=== PATIENT | female | born 1960 | race Caucasian/White ===

== ENCOUNTER 2023-12-05 11:18 | Outpatient (CLI) | payer MEDICAID, SELFPAY ==
--- NOTE | 2023-12-05 11:26 | XRR_ITS ---
PROCEDURE INFORMATION: Exam: XR Right Shoulder Exam date and time: 12/05/2023 11:42 AM Age: 62 years old Clinical indication: Shoulder; Patient HX: Right arm and neck pain for 2 years, HX of thyroid cancer; Additional info: Increased pain right shoulder/arm TECHNIQUE: Imaging protocol: Radiologic exam of the right shoulder. Views: 2 or more views. COMPARISON: CR XR cervical spine 3V* [id number] 12/05/2023 11:42 AM FINDINGS: Bones/joints: Normal. Soft tissues: Normal. XR/XR shoulder RT min 2V* [id number] IMPRESSION: No acute findings. Note is made of a moderate right-sided pleural effusion with some scattered right basilar parenchymal opacities. Chronic granulomatous changes.
--- NOTE | 2023-12-05 11:26 | XRR_ITS ---
PROCEDURE INFORMATION: Exam: XR Cervical Spine Exam date and time: 12/05/2023 11:42 AM Age: 62 years old Clinical indication: Patient HX: --right arm and neck pain for 2 years, HX of thyroid cancer; Additional info: Increased pain in neck and right arm TECHNIQUE: Imaging protocol: Radiologic exam of the cervical spine. Views: 2 or 3 views. COMPARISON: CR XR shoulder RT min 2V* [id number] 12/05/2023 11:42 AM FINDINGS: Bones/joints: No fracture or other acute abnormality. The bones are demineralized. There is a cervical kyphosis. Alignment is otherwise normal. Fnuz-xo-lyxnbtmu degenerative disc disease is seen at C4, C5, and C6 manifested by mild to moderate disc space narrowing and small marginal osteophytes. Posterior elements are unremarkable as visualized. Soft tissues: Unremarkable. XR/XR cervical spine 3V* [id number] IMPRESSION: Nonacute findings.
== END 2023-12-05 11:19 | disposition home or self-care (01) ==
PROVIDERS: PCP Family Medicine; Visit Provider Family Medicine
DX: M54.12 Radiculopathy, cervical region (principal); M19.011 Primary osteoarthritis, right shoulder; J90 Pleural effusion, not elsewhere classified
CPT/HCPCS: 72040; 73030

== ENCOUNTER → 2023-12-12 14:17 | Outpatient (BNVA) | payer MEDICAID, SELFPAY | PROVIDERS: PCP Family Medicine; Referring Provider Family Medicine; Visit Provider Orthopaedic Surgery | DX: M47.12 Other spondylosis with myelopathy, cervical region (principal); M54.12 Radiculopathy, cervical region; M54.2 Cervicalgia | CPT/HCPCS: 72050 ==

== ENCOUNTER 2023-12-26 18:36 | Emergency (ER) | payer MEDICAID, SELFPAY ==
[2023-12-26 18:46] VITALS: BP 133/93; PULSE 76; RESP 16; TEMP 36.7; O2SAT 96; BMI 36.6
--- NOTE | 2023-12-26 18:55 | ED_ITS ---
HPI - Nausea/Vomiting/Diarrhea 2 General: Chief complaint: Nausea/Vomiting/Diarrhea Stated complaint: vomitting Time Seen by Provider: 12/26/23 18:50 History of Present Illness: 63-year-old female with a history of ARCHITECTURAL TECHNOLOGIST D hypothyroidism who presents to the emergency room with nausea vomiting for about 3 days now. She states been sick for about a week. She started with some congestion. She started vomiting which is worse today. She says cannot keep anything down really she does keep some fluids down but it makes her feel queasy. She says she has been taking Zofran pills which have not been helping no focal abdominal pain. No dysuria. No altered mental status. Review of Systems 2 Narrative: Constitutional symptoms: Negative except as documented in HPI. Skin symptoms: Negative except as documented in HPI. Eye symptoms: Negative except as documented in HPI. ENMT symptoms: Negative except as documented in HPI. Respiratory symptoms: Negative except as documented in HPI. Cardiovascular symptoms: Negative except as documented in HPI. Gastrointestinal symptoms: Negative except as documented in HPI. Genitourinary symptoms: Negative except as documented in HPI. Musculoskeletal symptoms: Negative except as documented in HPI. Neurologic symptoms: Negative except as documented in HPI. Psychiatric symptoms: Negative except as documented in HPI. Endocrine symptoms: Negative except as documented in HPI. PFSH ED 2 PFSH: Medical History (Updated 12/26/23 @ 20:44 by Kala Gregory MD) Hypothyroid COPD (chronic obstructive pulmonary disease) Venous stenosis of left upper extremity Thyroid cancer Physical Exam 2 Narrative: EXAM NARRATIVE: General: Alert, no acute distress. Skin: Warm, dry. Head: Normocephalic, atraumatic. Neck: Supple, trachea midline. Eye: Extraocular movements are intact. Ears, nose, mouth and throat: Tacky oral mucosa Cardiovascular: Regular, Normal peripheral perfusion. Respiratory: Lungs are clear to auscultation, respirations are non-labored, breath sounds are equal, Symmetrical chest wall expansion. Gastrointestinal: Soft, Nontender, Non distended, Normal bowel sounds. Musculoskeletal: Normal ROM, no deformity. Neurological: Alert and oriented, No focal neurological deficit observed. Psychiatric: Cooperative, appropriate mood & affect. Course 2 Vital Signs: Vital signs: Vital Signs Temperature 98.0 F 12/26/23 18:46 Pulse Rate 76 12/26/23 18:46 Respiratory Rate 16 12/26/23 18:46 Blood Pressure 133/93 12/26/23 18:46 Pulse Oximetry 96 12/26/23 18:46 Oxygen Delivery Me thod Room Air 12/26/23 18:46 MDM - Nausea/Vomiting/Diarrhea Medical Decision Making Medical decision making: Differential diagnosis including but not limited to and based on the above HPI, review of systems and physical exam: In this patient with nausea and vomiting and diarrhea would have concern for viral gastroenteritis and dehydration. Also concern for UTI. Basic lab work was ordered. Orders placed to evaluate differential diagnosis based on the above differential, HPI and physical exam Lab Review: Laboratory results were reviewed and interpreted by myself the emergency room physician. Patient has a white count of 6. Hemoglobin 16. BUN and creatinine are 7 and 0.7. Glucose is 116. Potassium is 3.2. Her urine does show signs of infection so she is being treated. I reviewed the patient's medical record. Reexamination: Patient says she feels somewhat better. A second dose of Zofran is being given. No altered mental status. No focal motor deficits. She has not had any vomiting while she has been here. Assessment and plan: UTI Viral gastroenteritis Dehydration -Normal saline bolus and two 8 mg doses of Zofran. - Discharged home - Discussed plan with patient. Answered any questions. - Evaluation and treatment of this problem were appropriate in the emergency setting. Lab Data 12/26/23 19:15 12/26/23 19:15 Laboratory Results WBC 6.02 10^3/uL (3.29-11.43) 12/26/23 19:15 RBC 5.37 10^6/uL (3.85-5.65) 12/26/23 19:15 Hgb 16.30 g/dL (11.27-16.99) 12/26/23 19:15 Hct 47.7 % (36-47) H 12/26/23 19:15 MCV 88.8 fl (85-98) 12/26/23 19:15 MCH 30.4 pg (27-33) 12/26/23 19:15 MCHC 34.2 g/dL (30-55) 12/26/23 19:15 RDW 12.8 % (12.1-15.1) 12/26/23 19:15 Plt Count 314 10^3/cmm (157-399) 12/26/23 19:15 MPV 10.2 fL (7.4-10.4) 12/26/23 19:15 Neut % (Auto) 74.6 % 12/26/23 19:15 Lymph % (Auto) 19.6 % 12/26/23 19:15 Oliver % (Auto) 4.2 % 12/26/23 19:15 Eos % (Auto) 1.0 % 12/26/23 19:15 Baso % (Auto) 0.3 % 12/26/23 19:15 Neut # (Auto) 4.49 10^3/uL (1.8-7.7) 12/26/23 19:15 Lymph # (Auto) 1.2 10^3/uL (0.8-4.8) 12/26/23 19:15 Oliver # (Auto) 0.3 10^3/uL (0.2-0.9) 12/26/23 19:15 Eos # (Auto) 0.1 10^3/uL (0.0-0.8) 12/26/23 19:15 Baso # (Auto) 0.0 10^3/uL (0.0-0.1) 12/26/23 19:15 Nucleated RBC % (auto) 0 % 12/26/23 19:15 Nucleated RBCs # 0.0 /100WBC 12/26/23 19:15 Sodium 137 mmol/L (136-145) 12/26/23 19:15 Potassium 3.2 mmol/L (3.5-5.1) L 12/26/23 19:15 Chloride 94 mmol/L (98-107) L 12/26/23 19:15 Carbon Dioxide 30 mmol/L (22-29) H 12/26/23 19:15 Anion Gap 16.2 (5-19) 12/26/23 19:15 BUN 7 mg/dL (8-23) L 12/26/23 19:15 Creatinine 0.7 mg/dL (0.5-0.9) 12/26/23 19:15 GFR Calculation 84.5 mL/min (90-130) L 12/26/23 19:15 Glucose 116 mg/dL (65-115) H 12/26/23 19:15 Calculated Osmolality 283 mOsm/kg (285-295) L 12/26/23 19:15 Lactic Acid 1.6 mmol/L (0.5-2.2) 12/26/23 19:15 Calcium 9.6 mg/dL (8.5-10.5) 12/26/23 19:15 Total Bilirubin 0.3 mg/dL (0.15-1.2) 12/26/23 19:15 AST 25 U/L (0-32) 12/26/23 19:15 ALT 11 U/L (0-33) 12/26/23 19:15 Alkaline Phosphatase 200 U/L (35-105) H 12/26/23 19:15 C-Reactive Protein 24.9 mg/L (0.0-4.9) H 12/26/23 19:15 Total Protein 8.4 g/dL (6.6-8.7) 12/26/23 19:15 Albumin 4.0 g/dL (3.5-5.2) 12/26/23 19:15 Globulin 4.4 g/dL (1.3-4.6) 12/26/23 19:15 Lipase 12 U/L (13-60) L 12/26/23 19:15 Urine Color Yellow (Yellow) 12/26/23 19:46 Urine Appearance Slightly cloudy (CLEAR) 12/26/23 19:46 Urine pH 7 (5-7) 12/26/23 19:46 Ur Specific Pandora 1.015 (1.005-1.030) 12/26/23 19:46 Urine Protein Neg (Negative) 12/26/23 19:46 Urine Glucose (UA) Norm (Normal) 12/26/23 19:46 Urine Ketones Negative (Negative) 12/26/23 19:46 Urine Blood Neg (Negative) 12/26/23 19:46 Urine Nitrate Negative (Negative) 12/26/23 19:46 Urine Bilirubin Neg (Negative) 12/26/23 19:46 Urine Urobilinogen Norm mg/dL (Negative) 12/26/23 19:46 Ur Leukocyte Esterase Negative (Negative) 12/26/23 19:46 Urine RBC Rare /hpf (0-2) 12/26/23 19:46 Urine WBC 5-10 /hpf (0-5) H 12/26/23 19:46 Ur Squamous Epith Cells 5-10 /hpf (0-5) H 12/26/23 19:46 Ur Transition Epith Cell 0-4 /hpf 12/26/23 19:46 Amorphous Sediment Not Reportable 12/26/23 19:46 Urine Bacteria 2+ /hpf (NONE) H 12/26/23 19:46 Urine Mucus None /hpf 12/26/23 19:46 Urine Opiates Screen Positive ng/mL (Negative) H 12/26/23 19:46 Ur Barbiturates Screen Negative ng/mL (Negative) 12/26/23 19:46 Ur Phencyclidine Scrn Negative ng/mL (Negative) 12/26/23 19:46 Ur Amphetamines Screen Negative ng/mL (Negative) 12/26/23 19:46 U Benzodiazepines Scrn Negative ng/mL (Negative) 12/26/23 19:46 Urine Cocaine Screen Negative ng/mL (Negative) 12/26/23 19:46 U Marijuana (THC) Screen Negative ng/mL (Negative) 12/26/23 19:46 No radiology studies performed this visit Discharge Plan Discharge Patient Disposition: Home Clinical Impression: Urinary tract infection, Dehydration, Viral gastroenteritis Condition: Stable Prescriptions: New ondansetron 8 mg tablet,disintegrating 8 mg PO .q6 PRN (Reason: nausea and vomiting) Qty: 14 0RF cefdinir 300 mg capsule 300 mg PO BID 7 Days Qty: 14 0RF No Action tizanidine 2 mg capsule 2 mg PO Q8H PRN atorvastatin 10 mg tablet 10 mg PO DAILY montelukast 10 mg tablet 10 mg PO DAILY clopidogrel 75 mg tablet 75 mg PO DAILY prednisone 20 mg tablet 20 mg PO DAILY Qty: 20 0RF Rx Instructions: 3 tabs a day for 3 days then 2 tabs a day for 3 days then 1 tab a day for 5 days ketorolac 30 mg/mL solution 60 mg IM ONCE Qty: 2 0RF ondansetron HCl 4 mg tablet 4 mg PO Q8H PRN (Reason: nausea and vomiting) Qty: 30 0RF levothyroxine 125 mcg tablet 125 mcg PO DAILY Qty: 90 0RF nebivolol 5 mg tablet 5 mg PO DAILY Qty: 90 0RF Premarin 0.9 mg tablet 0.9 mg PO DAILY Qty: 90 0RF Rx Instructions: cyclically topiramate 100 mg tablet 100 mg PO DAILY Qty: 90 0RF diclofenac sodium 75 mg tablet,delayed release (DR/EC) 75 mg PO BID PRN (Reason: pain) Qty: 20 0RF hydrocodone-acetaminophen 10-325 mg tablet 1 tab PO Q12H PRN (Reason: pain) 30 Days Qty: 60 0RF Discharge Orders: Discharge ED (Routine); Ordered 12/26/23 Ordered By: Kala Gregory Referrals: Agueda Lawson MD [Primary Care Provider] - 4-7 days Discharge Diet: Advance as tolerated Discharge Activity: Increase activity as tolerated Patient Instructions: [place] Diet - Adult, Urinary Tract Infection in Women (ED), Gastroenteritis (ED) Activity Restrictions/Additional Instructions: Thank you for choosing [facility] for your healthcare needs today. Please realize this is an emergency room and that we are providing you with a medical screening exam and this may not be complete and all inclusive of all the testing and or work up that you may need to determine your ailment or severity of your illness. You have been screened and evaluated and felt safe for discharge. Health conditions do change or evolve sometimes and as such it is important that you follow up with your Primary Doctor to be re checked, 3-5 days is a general good time frame for follow up. You are always welcome to return to the ED for re assessment if your symptoms are worsening or you have new concerns Coding Level of Care Code ED [employer] Lens Technician for Shaylee Benítez
[2023-12-26] MEDS: sodium chloride 0.9% 1,000 ML 999 ML IV (19:20)
[2023-12-26] MEDS: ondansetron 2 mg/ML SDV 2 mL 8 MG IVP ×2 (19:20→20:51)
[2023-12-26 19:35] LABS: Basophils % 0.3 %; Eosinophils # 0.1 10^3/uL (0.0-0.8); Hematocrit 47.7 % (36-47); Lymphocytes # 1.2 10^3/uL (0.8-4.8); Lymphocytes % 19.6 %; Mean Corpuscular HGB Conc 34.2 g/dL (30-55); Mean Corpuscular Hemoglobin 30.4 pg (27-33); Mean Corpuscular Volume 88.8 fl (85-98); Mean Platelet Volume 10.2 fL (7.4-10.4); Monocytes # 0.3 10^3/uL (0.2-0.9); Monocytes % 4.2 %; Neutrophils # 4.49 10^3/uL (1.8-7.7); Neutrophils % 74.6 %; Nucleated Red Blood Cells % 0 %; Platelet Count 314 10^3/cmm (157-399); Red Blood Count 5.37 10^6/uL (3.85-5.65); Red Cell Distribution Width 12.8 % (12.1-15.1); White Blood Count 6.02 10^3/uL (3.29-11.43)
[2023-12-26 19:54] LABS: Alanine Aminotransferase 11 U/L (0-33); Alkaline Phosphatase 200 U/L (35-105); Anion Gap 16.2 (5-19); Aspartate Amino Transferase 25 U/L (0-32); Blood Urea Nitrogen 7 mg/dL (8-23); C Reactive Protein 24.9 mg/L (0.0-4.9); Calcium 9.6 mg/dL (8.5-10.5); Carbon Dioxide 30 mmol/L (22-29); Chloride 94 mmol/L (98-107); Creatinine Clr Calc Pharmacy 86.1592; Globulin 4.4 g/dL (1.3-4.6); Glomerular Filtration Rate 84.5 mL/min (90-130); Glucose 116 mg/dL (65-115); Lactic Sepsis W/Reflex 1.6 mmol/L (0.5-2.2); Lipase 12 U/L (13-60); Osmolality Calculated 283 mOsm/kg (285-295); Potassium 3.2 mmol/L (3.5-5.1); Sodium 137 mmol/L (136-145); Total Bilirubin 0.3 mg/dL (0.15-1.2); Total Protein 8.4 g/dL (6.6-8.7)
[2023-12-26 20:15] LABS: Urine Appearance Slightly Cloudy (CLEAR); Urine Color Yellow (Yellow); pH Urine 7 (5-7)
[2023-12-26 20:16] LABS: Bilirubin Urine Neg (Negative); Blood Urine Neg (Negative); Glucose Urine UA Norm (Normal); Ketones Urine Negative (Negative); Leukocyte Esterase Urine Negative (Negative); Nitrate Urine Negative (Negative); Protein Urine Neg (Negative); Specific Gravity, Urine 1.015 (1.005-1.030); Urobilinogen Urine Norm (Negative)
[2023-12-26 20:18] LABS: Bacteria Urine 2+ /hpf; RBC Urine RARE /hpf (0-2); Transitional Epi Cells Urine 0-4 /hpf
[2023-12-26 20:19] LABS: Add Urine Culture? No; Amphetamines Screen Urine Negative (Negative); Barbiturates Screen Urine Negative (Negative); Benzodiazepines Screen Urine Negative (Negative); Cocaine Screen Urine Negative (Negative); Opiate Screen Urine Positive (Negative); PCP Screen Urine Negative (Negative); THC Screen Urine Negative (Negative)
[2023-12-26] MEDS: cefTRIAXone 1,000 MG in sodium chloride 0.9% (plus) 50 ML 100 MG IV (20:51)
[2023-12-26] MEDS: prochlorperazine 10 mg/2 mL Inj IVP (21:19)
[2023-12-26] MEDS: diphenhydrAMINE 50 mg/mL SDV 1mL 25 MG IVP (21:22)
[2023-12-26 21:25] VITALS: PULSE 75; RESP 16; O2SAT 98
== END 2023-12-26 21:36 | disposition home or self-care (01) ==
PROVIDERS: Emergency Provider Emergency Medicine; PCP Family Medicine
DX: N39.0 Urinary tract infection, site not specified (principal); A08.4 Viral intestinal infection, unspecified; E86.0 Dehydration; Z79.02 Long term (current) use of antithrombotics/antiplatelets; J44.9 Chronic obstructive pulmonary disease, unspecified; Z85.850 Personal history of malignant neoplasm of thyroid
CPT/HCPCS: 36415; 80053; 80306; 81001; 83605; 83690; 85025; 86140; 96365; 96375; 96376; 99284; J0696; J0780; J1200; J2405; J7030

== ENCOUNTER → 2024-01-16 14:00 | Outpatient (CLI) | payer MEDICAID, SELFPAY ==
--- NOTE | 2024-01-16 14:30 | MR_ITS ---
WS: [id number] MR CERVICAL SPINE WO/W COMPARISON: None. HISTORY: Neck Pain TECHNIQUE: Sagittal T1, T2 and T2 inversion recovery; axial T2, T2 gradient and fiesta. Post gadolini um imaging with fat saturation technique. FINDINGS: Osteoporosis. Reversal of the normal cervical lordosis. Mild cervical curve. Cord signal is normal. Slight anterolisthesis C3 on C4. Disc osteophyte complexes worse at C4-C5 C5-C6 and C6-C7. N o abnormal gadolinium enhancement. C2-3: Mild facet arthropathy. Spinal canal and foramen are patent. C3-4: Osteophytic ridging. Mild LEFT and no significant RIGHT foraminal narrowing. Spinal canal is pa tent. Mild facet arthropathy. C4-5: Disc osteophyte complex with endplate ridging. Spinal canal is patent. Mild LEFT greater than R IGHT bony foraminal narrowing. Mild facet arthropathy. C5-6: Disc osteophyte complex with endplate ridging. Mild facet arthropathy. Mild bilateral bony fora sofia narrowing. C6-7: Disc osteophyte complex eccentric to the RIGHT. Moderate RIGHT and no significant LEFT foramina l narrowing. C7-T1: Spinal canal and foramen are patent. MR/MR cervical spine wo/w [id number] IMPRESSION: 1. Reversal of the normal cervical lordosis with slight anterolisthesis C3 on C4. 2. Disc osteophyte complexes worse at C4-C5 C5-C6 and C6-C7. 3. Cord signal is normal. 4. No significant central canal stenosis. 5. Mild bony foraminal narrowing LEFT C3-4, bilateral C4-5, bilateral C5-6, an d moderate RIGHT C6-7.
== END | disposition home or self-care (01) ==
LOC: RAD 14:00
PROVIDERS: PCP Family Medicine; Visit Provider Orthopaedic Surgery
DX: M99.61 Osseous and subluxation stenosis of intervertebral foramina of cervical region (principal); M25.78 Osteophyte, vertebrae
CPT/HCPCS: 72156

== ENCOUNTER 2024-02-08 12:47 | Outpatient (RCR) | payer MEDICAID, SELFPAY | END 2024-02-28 23:59 | disposition home or self-care (01) | LOC: SPT 12:47 | PROVIDERS: Visit Provider Orthopaedic Surgery | DX: M54.2 Cervicalgia (principal); G89.29 Other chronic pain | CPT/HCPCS: 97110; 97140; 97161 ==

== ENCOUNTER 2024-02-29 06:00 | Outpatient (RCR) | payer MEDICAID, SELFPAY | END 2024-03-30 23:59 | disposition home or self-care (01) | LOC: SPT 06:00 | PROVIDERS: PCP Family Medicine; Visit Provider Orthopaedic Surgery | DX: M54.2 Cervicalgia (principal); G89.29 Other chronic pain | CPT/HCPCS: 97110; 97140 ==

== ENCOUNTER 2024-03-15 14:29 | Outpatient (CLI) | payer MEDICAID, SELFPAY ==
[2024-03-15 15:26] LABS: Erythrocyte Sedimentation Rate 62 mm/hr (0-15)
[2024-03-15 15:34] LABS: Creatine Phosphokinase 42 U/L (26-192); Thyroid Stimulating Hormone 8.42 uIU/mL (0.27-4.20)
[2024-03-18 10:29] LABS: THYROID PEROXIDASE ANTIBODIES 5 IU/mL (<9)
[2024-03-18 13:30] LABS: COMPLEMENT COMPONENT C3C 229 mg/dL (83-193); COMPLEMENT COMPONENT C4C 30 mg/dL (15-57)
[2024-03-18 13:38] LABS: COMPLEMENT, TOTAL (CH50) >60 U/mL (31-60)
[2024-03-18 14:16] LABS: CENTROMERE B ANTIBODY <1.0 NEG AI (<1.0 NEG); JO-1 ANTIBODY <1.0 NEG AI (<1.0 NEG); RNP ANTIBODY <1.0 NEG AI (<1.0 NEG); SCL-70 ANTIBODY <1.0 NEG AI (<1.0 NEG); SJOGREN'S ANTIBODY (SS-A) <1.0 NEG AI (<1.0 NEG); SM ANTIBODY <1.0 NEG AI (<1.0 NEG); SS-B <1.0 NEG AI (<1.0 NEG)
[2024-03-19 11:48] LABS: ANA PATTERN Nuclear, Homogeneous; ANA SCREEN, IFA POSITIVE (NEGATIVE)
== END 2024-03-15 14:30 | disposition home or self-care (01) ==
LOC: RAD 14:30
PROVIDERS: PCP Family Medicine; Visit Provider Specialist
DX: E89.0 Postprocedural hypothyroidism (principal); G72.9 Myopathy, unspecified
CPT/HCPCS: 36415; 82550; 84443; 85651; 86160; 86162; 86235; 86255; 86376; 86431

== ENCOUNTER 2024-05-13 13:38 | Outpatient (CLI) | payer MEDICAID, SELFPAY ==
--- NOTE | 2024-05-13 13:45 | MR_ITS ---
WS: [id number] MRI RIGHT SHOULDER NONCONTRAST TECHNIQUE: Sagittal T2, coronal T1, T2 and proton density imaging. Axial gradient PDE imaging. CLINICAL INFORMATION: Right shoulder pain/rule out rotator cuff tear COMPARISON: None. FINDINGS: Moderate degenerative arthritis AC joint. Moderate downsloping acromion. Slight impingement distal farmer praspinatus. Small amount of subacromial subdeltoid fluid. Tendinopathy supraspinatus and infraspinat us distally. Chronic thinning. Small undersurface tear distal supraspinatus and infraspinatus. No ten don retraction. Normal teres minor. Subscapularis tendon appears intact. Biceps tendon appears intact within the bici pital groove. Tendinopathy intra-articular biceps tendon which appears intact. Normal bone marrow sig nal in the humerus and glenoid. Moderate degenerative narrowing glenohumeral articulation. MR/MR shoulder RT wo con* [id number] IMPRESSION: 1. Moderate degenerative arthritis AC joint with small amount of subacromial s ubdeltoid fluid. Impingement distal supraspinatus. 2. Tendinopathy distal supraspinatus and infraspinatus with chronic thinning. Small undersurface tears distal supraspinatus and infraspinatus. No tendon retr action. 3. Biceps tendon appears intact within the bicipital groove. 4. Tendinopathy intra-articular biceps tendon.
== END 2024-05-13 13:39 | disposition home or self-care (01) ==
LOC: RAD 13:39
PROVIDERS: PCP Family Medicine; Visit Provider Student in an Organized Health Care Education/Training Program
DX: M19.011 Primary osteoarthritis, right shoulder (principal); M75.91 Shoulder lesion, unspecified, right shoulder
CPT/HCPCS: 73221

== ENCOUNTER 2024-10-13 10:07 | Emergency (ER) | payer MEDICAID, SELFPAY ==
[2024-10-13 10:15] VITALS: BP 154/91; PULSE 61; RESP 16; TEMP 36.6; O2SAT 95; BMI 29.5
--- NOTE | 2024-10-13 10:16 | XRR_ITS ---
PROCEDURE INFORMATION: Exam: XR Chest Exam date and time: 10/13/2024 10:23 AM Age: 63 years old Clinical indication: Pain; Chest pressure; Additional info: Chest pain TECHNIQUE: Imaging protocol: Radiologic exam of the chest. Views: 1 view. COMPARISON: MR shoulder RT wo con* [id number] 05/13/2024 1:54 PM FINDINGS: Lungs: See Heart/Mediastinum finding. Pleural spaces: Diffuse nodular pleural thickening that extends into the fissures and associated with a small right-sided pleural effusion concerning for malignant pleural disease. Heart/Mediastinum: Calcified subcarinal lymph node. Bones/joints: Unremarkable. XR/XR chest 1V portable [id number] IMPRESSION: Diffuse right lung nodular pleural thickening that extends into the fissures and associated with a small right-sided pleural effusion concerning for malignant pleural disease.
--- NOTE | 2024-10-13 10:17 | ECG_ITS ---
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
[2024-10-13 10:28] LABS: Basophils % 0.3 %; Eosinophils # 0.2 10^3/uL (0.0-0.8); Eosinophils % 3.4 %; Hematocrit 45.9 % (36-47); Lymphocytes # 1.7 10^3/uL (0.8-4.8); Mean Corpuscular HGB Conc 32.2 g/dL (30-55); Mean Corpuscular Hemoglobin 28.2 pg (27-33); Mean Corpuscular Volume 87.4 fl (85-98); Mean Platelet Volume 9.6 fL (7.4-10.4); Monocytes # 0.3 10^3/uL (0.2-0.9); Monocytes % 4.8 %; Neutrophils # 4.41 10^3/uL (1.8-7.7); Neutrophils % 66.2 %; Nucleated Red Blood Cells % 0 %; Platelet Count 354 10^3/cmm (157-399); Red Blood Count 5.25 10^6/uL (3.85-5.65); Red Cell Distribution Width 14.7 % (12.1-15.1); White Blood Count 6.67 10^3/uL (3.29-11.43)
--- NOTE | 2024-10-13 10:31 | W.ED.CHESTPA ---
HPI - Chest Pain General: Chief Complaint: Chest Pain Stated Complaint: chest pain Time Seen by Provider: 10/13/24 10:16 History of Present Illness: 63-year-old female with a history of COPD, hypertension, hypothyroidism and anxiety who presents emergency room with chest pain. This started about 20 minutes ago. Central chest radiating into her back. She says it feels like a squeezing. She has some nausea. No vomiting. No fever. No new cough. She says it is hard to take a deep breath. No edema. No altered mental status. Related Data Home Medications ?Medication ?Instructions ?Recorded ?Confirmed acetaminophen 500 mg tablet 1,000 mg PO Q6H PRN Fever Or Pain 10/13/24 10/13/24 (Tylenol Extra Strength) aspirin 81 mg tablet,delayed 81 mg PO DAILY 10/13/24 10/13/24 release (Laura Low Dose Aspirin) diphenhydramine HCl 25 mg tablet 25 - 50 mg PO TID PRN allergies 10/13/24 10/13/24 (Benadryl Allergy) Previous Rx's ?Medication ?Instructions ?Recorded diclofenac sodium 75 mg 75 mg PO BID PRN pain #20 tabs 12/05/23 tablet,delayed release ondansetron 8 mg disintegrating 8 mg PO .q6 PRN nausea and 12/26/23 tablet vomiting #14 tabs atorvastatin 10 mg tablet 10 mg PO DAILY #90 tabs 12/28/23 conjugated estrogens 0.9 mg tablet 0.9 mg PO DAILY #90 tabs 02/08/24 (Premarin) tizanidine 2 mg capsule 2 mg PO Q12H PRN muscle spasticity 02/08/24 #180 caps clopidogrel 75 mg tablet 75 mg PO DAILY #90 tabs 02/27/24 albuterol sulfate 90 mcg/actuation 2 puff inhalation Q6H PRN 03/25/24 aerosol inhaler shortness of breath or wheezing #8.5 grams fluticasone 500 mcg-salmeterol 50 1 inh inhalation BID #60 ea 03/25/24 mcg/dose blistr powdr for inhalation (Advair Diskus) levothyroxine 150 mcg tablet 150 mcg PO DAILY #90 tabs 03/25/24 omeprazole 20 mg capsule,delayed See Rx Instructions .Route 04/24/24 release .COMPLEX #30 caps trazodone 50 mg tablet See Rx Instructions .Route 07/30/24 .COMPLEX #30 tabs hydrocodone 10 mg-acetaminophen 1 tab PO Q8H PRN pain 30 days #75 09/30/24 325 mg tablet tabs propranolol 10 mg tablet 10 mg PO TID #90 tabs 10/01/24 Allergies Allergy/AdvReac Type Severity Reaction Status Date / Time Sulfu Allergy Severe ALGY-Difficulty Uncoded 09/24/24 09:52 Breathing Review of Systems Narrative: Constitutional symptoms: Negative except as documented in HPI. Skin symptoms: Negative except as documented in HPI. Eye symptoms: Negative except as documented in HPI. ENMT symptoms: Negative except as documented in HPI. Respiratory symptoms: Negative except as documented in HPI. Cardiovascular symptoms: Negative except as documented in HPI. Gastrointestinal symptoms: Negative except as documented in HPI. Genitourinary symptoms: Negative except as documented in HPI. Musculoskeletal symptoms: Negative except as documented in HPI. Neurologic symptoms: Negative except as documented in HPI. Psychiatric symptoms: Negative except as documented in HPI. Endocrine symptoms: Negative except as documented in HPI. PFS ED PFSH: Medical History Anxiety disorder Hypoestrogenism Essential tremor Essential hypertension Hypothyroid COPD (chronic obstructive pulmonary disease) Venous stenosis of left upper extremity Thyroid cancer Social History Smoking and tobacco/nicotine status: never used tobacco/nicotine Physical Exam Narrative: EXAM NARRATIVE: General: Alert, no acute distress. Skin: Warm, dry. Head: Normocephalic, atraumatic. Neck: Supple, trachea midline. Eye: Extraocular movements are intact. Ears, nose, mouth and throat: mucosa moist. Cardiovascular: Regular, Normal peripheral perfusion. Respiratory: Lungs are clear to auscultation, respirations are non-labored, breath sounds are equal, Symmetrical chest wall expansion. Gastrointestinal: Soft, Nontender, Non distended Musculoskeletal: Normal ROM, no deformity. Neurological: Alert and oriented, No focal neurological deficit observed. Psychiatric: Cooperative, appropriate mood & affect. Course Vital Signs: Vital signs: Vital Signs Temperature 97.9 F 10/13/24 10:15 Pulse Rate 58 L 10/13/24 12:52 Respiratory Rate 17 10/13/24 11:13 Blood Pressure 109/65 10/13/24 12:52 Pulse Oximetry 97 10/13/24 12:52 Oxygen Delivery Me thod Room Air 10/13/24 12:52 MDM - Chest Pain Medical Decision Making Differential diagnosis for patient with chest pain includes but is not limited to and based on the above HPI, review of systems and physical exam: Pneumonia. unstable angina. angina. Acute coronary syndrome / [place]. Pulmonary embolism. Costochondritis / musculoskeletal. Pleurisy. Pericarditis. Esophageal spasm. Pancreatis. Cholecystitis. Orders placed to evaluate differential diagnosis based on the above differential, HPI and physical exam EKG: Time 1011. Rate 62. Normal sinus rhythm, No ST-T changes, no ectopy, normal NC & QRS intervals, This was reviewed and interpreted by myself the ER physician at 1012. Chest x-ray: Diffuse right nodular pleural thickening that extends into the fissures and associated with small right pleural effusion concerning for malignant pleural disease. This was reviewed and interpreted by myself the emergency room physician. I also reviewed the radiology report. Repeat EKG: Time 1207. Rate 58. Sinus bradycardia, No ST-T changes, no ectopy, normal NC & QRS intervals, This was reviewed and interpreted by myself the ER physician at 1211. No significant changes from EKG done previously in the emergency room today. Heart rate has decreased by 4 bpm. Lab Review: Laboratory results were reviewed and interpreted by myself the emergency room physician. No leukocytosis. No anemia. No renal failure. D-dimer was mildly elevated so a CTA was ordered to evaluate abnormal lung hansen and rule out pulmonary embolism. CTA of the chest with PE protocol: No pulmonary embolism. Again diffuse circumferential pleural thickening and nodularity along the right lung with thickness greater than 1.8 cm extending along the fissures. Nodular pleural thickening and pleural effusion are highly concerning for malignant pleural disease. This was reviewed and interpreted by myself the emergency room physician. I also reviewed the radiology report. Consultation: I spoke with Dr. Sheffield who is a insurance marketing specialist at [facility] in [place]. He reviewed CT scan briefly and believes this may be mesothelioma. He recommends follow-up with the cardiovascular surgeon for biopsy. I reviewed the patient's medical record. Reexamination: Pain has improved greatly with morphine. Nitro made the pain much worse. Patient remained stable. No increased work of breathing. No altered mental status. No focal motor deficits. I discussed findings on the CT scan and expressed urgency that she needs to follow-up with her primary physician and seek a biopsy of her lung as soon as possible. She expresses understanding. Assessment and plan: Noncardiac chest pain Pleural thickening with concern for malignancy - Discharged home - Discussed plan with patient. Answered any questions. - Evaluation and treatment of this problem were appropriate in the emergency setting. Lab Data 10/13/24 10:23 10/13/24 10:23 Radiology Impressions Chest X-Ray 10/13/24 10:16 IMPRESSION: Diffuse right lung nodular pleural thickening that extends into the fissures and associated with a small right-sided pleural effusion concerning for malignant pleural disease. Chest CTA 10/13/24 11:05 IMPRESSION: 1. No pulmonary embolism. 2. Diffuse circumferential pleural thickening and nodularity along the right lung with thickness greater than 1.8 centimeters, extending along the fissures. Nodular pleural thickening and pleural effusion are highly concerning for malignant pleural disease. Laboratory Results WBC 6.67 10^3/uL (3.29-11.43) 10/13/24 10:23 RBC 5.25 10^6/uL (3.85-5.65) 10/13/24 10:23 Hgb 14.80 g/dL (11.27-16.99) 10/13/24 10:23 Hct 45.9 % (36-47) 10/13/24 10:23 MCV 87.4 fl (85-98) 10/13/24 10:23 MCH 28.2 pg (27-33) 10/13/24 10:23 MCHC 32.2 g/dL (30-55) 10/13/24 10:23 RDW 14.7 % (12.1-15.1) 10/13/24 10:23 Plt Count 354 10^3/cmm (157-399) 10/13/24 10:23 MPV 9.6 fL (7.4-10.4) 10/13/24 10:23 Neut % (Auto) 66.2 % 10/13/24 10:23 Lymph % (Auto) 25.0 % 10/13/24 10:23 [place] % (Auto) 4.8 % 10/13/24 10:23 Eos % (Auto) 3.4 % 10/13/24 10:23 Baso % (Auto) 0.3 % 10/13/24 10:23 Neut # (Auto) 4.41 10^3/uL (1.8-7.7) 10/13/24 10:23 Lymph # (Auto) 1.7 10^3/uL (0.8-4.8) 10/13/24 10:23 [place] # (Auto) 0.3 10^3/uL (0.2-0.9) 10/13/24 10:23 Eos # (Auto) 0.2 10^3/uL (0.0-0.8) 10/13/24 10:23 Baso # (Auto) 0.0 10^3/uL (0.0-0.1) 10/13/24 10:23 Nucleated RBC % (auto) 0 % 10/13/24 10: Nucleated RBCs # 0.0 /100WBC 10/13/24 10:23 D-Dimer 0.96 ug/mLFEU (0-0.59) H 10/13/24 10:23 Sodium 139 mmol/L (136-145) 10/13/24 10:23 Potassium 4.1 mmol/L (3.5-5.1) 10/13/24 10:23 Chloride 103 mmol/L (98-107) 10/13/24 10:23 Carbon Dioxide 24 mmol/L (22-29) 10/13/24 10:23 Anion Gap 16.1 (5-19) 10/13/24 10:23 BUN 10 mg/dL (8-23) 10/13/24 10:23 Creatinine 0.8 mg/dL (0.5-0.9) 10/13/24 10:23 GFR Calculation 72.4 mL/min (90-130) L 10/13/24 10:23 Glucose 88 mg/dL (65-115) 10/13/24 10:23 Calculated Osmolality 286 mOsm/kg (285-295) 10/13/24 10:23 Calcium 9.6 mg/dL (8.5-10.5) 10/13/24 10:23 Total Bilirubin 0.2 mg/dL (0.15-1.2) 10/13/24 10:23 AST 13 U/L (0-32) 10/13/24 10:23 ALT 7 U/L (0-33) 10/13/24 10:23 Alkaline Phosphatase 132 U/L (35-105) H 10/13/24 10:23 Troponin T Baseline 8 ng/L (0-10) 10/13/24 10:23 Troponin T 120 Minute 7.32 ng/L (0-10) 10/13/24 12:18 Delta Troponin T -0.68 ABS# (0-10) L 10/13/24 12:18 NT-Pro-B Natriuret Pep 482 pg/mL (0-125) H 10/13/24 10:23 Total Protein 6.8 g/dL (6.6-8.7) 10/13/24 10:23 Albumin 3.7 g/dL (3.5-5.2) 10/13/24 10:23 Globulin 3.1 g/dL (1.3-4.6) 10/13/24 10:23 All radiology interpretation(s) finalized by discharge Discharge Plan Discharge Patient Disposition: Home Clinical Impression: Non-cardiac chest pain, Pleural thickening Condition: Stable Prescriptions: No Action atorvastatin 10 mg tablet 10 mg PO DAILY Qty: 90 3RF tizanidine 2 mg capsule 2 mg PO Q12H PRN (Reason: muscle spasticity) Qty: 180 3RF Premarin 0.9 mg tablet 0.9 mg PO DAILY Qty: 90 1RF Rx Instructions: cyclically diclofenac sodium 75 mg tablet,delayed release (DR/EC) 75 mg PO BID PRN (Reason: pain) Qty: 20 0RF fluticasone propion-salmeterol [Advair Diskus] 500-50 mcg/dose blister with device 1 inh inhalation BID Qty: 60 5RF albuterol sulfate 90 mcg/actuation HFA aerosol inhaler 2 puff inhalation Q6H PRN (Reason: shortness of breath or wheezing) Qty: 8.5 5RF levothyroxine 150 mcg tablet 150 mcg PO DAILY Qty: 90 3RF clopidogrel 75 mg tablet 75 mg PO DAILY Qty: 90 3RF omeprazole 20 mg capsule,delayed release(DR/EC) See Rx Instructions .ROUTE .COMPLEX Qty: 30 7RF Dose Instruction: Take 1 capsule by mouth once daily Rx Instructions: Take 1 capsule by mouth once daily trazodone 50 mg tablet See Rx Instructions .ROUTE .COMPLEX Qty: 30 5RF Dose Instruction: Take 1 tablet by mouth once daily Rx Instructions: Take 1 tablet by mouth once daily hydrocodone-acetaminophen 10-325 mg tablet 1 tab PO Q8H PRN (Reason: pain) 30 Days Qty: 75 0RF propranolol 10 mg tablet 10 mg PO TID Qty: 90 1RF ondansetron 8 mg tablet,disintegrating 8 mg PO .q6 PRN (Reason: nausea and vomiting) Qty: 14 0RF aspirin [Laura Low Dose Aspirin] 81 mg Tablet,Delayed Release (Dr/Ec) 81 mg PO DAILY acetaminophen [Tylenol Extra Strength] 500 mg Tablet 1,000 mg PO Q6H PRN (Reason: Fever Or Pain) diphenhydramine HCl [Benadryl Allergy] 25 mg Tablet 25 - 50 mg PO TID PRN (Reason: allergies) Discharge Orders: Discharge ED (Routine); Ordered 10/13/24 Ordered By: Kala Gregory Referrals: Agueda Lawson MD [Primary Care Provider] - (Please follow-up with your primary doctor early next week and seek referral to a cardiovascular surgeon for a lung biopsy.) Mark Hammond [Occupational Therapist] - (Please call for an appointment with Dr. Sheffield or insurance marketing specialist of your choosing.) Discharge Diet: Usual diet Discharge Activity: Increase activity as tolerated Patient Instructions: Noncardiac Chest Pain (ED), Opioid Safety, Pain Management Activity Restrictions/Additional Instructions: Thank you for choosing [facility] for your healthcare needs today. Please realize this is an emergency room and that we are providing you with a medical screening exam and this may not be complete and all inclusive of all the testing and or work up that you may need to determine your ailment or severity of your illness. You have been screened and evaluated and felt safe for discharge. Health conditions do change or evolve sometimes and as such it is important that you follow up with your Primary Doctor to be re checked, 3-5 days is a general good time frame for follow up. You are always welcome to return to the ED for re assessment if your symptoms are worsening or you have new concerns Print Language: Khmer Coding Level of Care Code ED Engine Setter for Shaylee Benítez
[2024-10-13] MEDS: aspirin 81 mg Chew Tablet 324 MG PO (10:32)
[2024-10-13] MEDS: nitroglycerin 0.4 mg sublingual Tablet SUBLINGUAL (10:33)
[2024-10-13 10:49] LABS: Troponin(5th) Baseline 8 ng/L (0-10)
[2024-10-13] MEDS: sodium chloride 0.9% 1,000 ML 999 ML IV (10:55)
[2024-10-13 11:01] LABS: D Dimer 0.96 ug/mLFEU (0-0.59)
[2024-10-13 11:02] LABS: Alanine Aminotransferase 7 U/L (0-33); Albumin Level 3.7 g/dL (3.5-5.2); Alkaline Phosphatase 132 U/L (35-105); Anion Gap 16.1 (5-19); Aspartate Amino Transferase 13 U/L (0-32); Blood Urea Nitrogen 10 mg/dL (8-23); Calcium 9.6 mg/dL (8.5-10.5); Carbon Dioxide 24 mmol/L (22-29); Chloride 103 mmol/L (98-107); Creatinine Clr Calc Pharmacy 70.1542; Globulin 3.1 g/dL (1.3-4.6); Glomerular Filtration Rate 72.4 mL/min (90-130); Glucose 88 mg/dL (65-115); NT Pro B Type Natriuretic Pept 482 pg/mL (0-125); Osmolality Calculated 286 mOsm/kg (285-295); Potassium 4.1 mmol/L (3.5-5.1); Sodium 139 mmol/L (136-145); Total Bilirubin 0.2 mg/dL (0.15-1.2); Total Protein 6.8 g/dL (6.6-8.7)
--- NOTE | 2024-10-13 11:05 | CTR_ITS ---
PROCEDURE INFORMATION: Exam: CTA Chest With Contrast Exam date and time: 10/13/2024 11:24 AM Age: 63 years old Clinical indication: Pain and abnormal findings; Abnormal diagnostic tests; Elevated d-dimer; On breathing; HX of thyroid cancer with radiation several years ago; Additional info: Chest pain, elevated ddimer TECHNIQUE: Imaging protocol: Computed tomographic angiography of the chest with contrast. Exam focused on the arteries. 3D rendering (Not supervised by radiologist): MIP and/or 3D reconstructed images were created by the technologist. Radiation optimization: All CT scans at this facility use at least one of these dose optimization techniques: automated exposure control; mA and/or kV adjustment per patient size (includes targeted exams where dose is matched to clinical indication); or iterative reconstruction. Contrast material: OMNIPAQUE 350; Contrast volume: 77 ml; Contrast route: INTRAVENOUS (IV); COMPARISON: CR (CHEST, ) 10/13/2024 10:23 AM RADIATION DOSE METRICS: Total DLP (mGy-cm): 300.08 FINDINGS: Pulmonary arteries: Adequate visualization of the pulmonary arteries to the subsegmental level. No pulmonary embolism. Aorta: Ascending aorta is normal in caliber. Lungs: Unremarkable. No consolidation. No masses. Pleural spaces: Loculated small right-sided pleural effusion. Diffuse circumferential pleural thickening and nodularity along the right lung with thickness greater than 1.8 centimeters, extending along the fissures. Nodular pleural thickening and pleural effusion are highly concerning for malignant pleural disease. Heart: Unremarkable. No cardiomegaly. No pericardial effusion. Coronary arteries: No coronary artery calcifications. Lymph nodes: Calcified right perihilar lymph nodes. Bones/joints: Unremarkable. No acute fracture. Soft tissues: Unremarkable. CT/CT angio chest PE protcl [id number] IMPRESSION: 1. No pulmonary embolism. 2. Diffuse circumferential pleural thickening and nodularity along the right lung with thickness greater than 1.8 centimeters, extending along the fissures. Nodular pleural thickening and pleural effusion are highly concerning for malignant pleural disease.
[2024-10-13 11:13] VITALS: RESP 17; O2SAT 94
[2024-10-13] MEDS: morphine 4 mg/mL SDV 1 mL IVP (11:13)
[2024-10-13] MEDS: ondansetron 2 mg/ML SDV 2 mL 4 MG IVP (11:13)
[2024-10-13 11:15] VITALS: BP 123/73; PULSE 60; O2SAT 94
[2024-10-13] MEDS: iohexol 350 mg/mL 500 mL Btl (per mL) IV (11:40)
--- NOTE | 2024-10-13 12:16 | ECG_ITS ---
[facility] Date: 2024-10-13 Pat Name: Keshia Soriano Department: Room: Gender: Female Post Doc Fellowship: : 1960 Requested By: Kala Flores Order Number: [id number] Reading MD: MICHAEL YUSUF Measurements Intervals [place] Rate: 58 P: 61 MI: 172 QRS: 86 QRSD: 84 T: 57 QT: 466 QTc: 461 Interpretive Statements SINUS BRADYCARDIA Compared to ECG 10/13/2024 10:11:17 Sinus rhythm no longer present Electronically Signed On 10-14-2024 18:17:14 CDT by MICHAEL YUSUF [email or web address]
[2024-10-13 12:50] LABS: Troponin 5 2HR 7.32 ng/L (0-10); Troponin 5 2HR Delta -0.68 ABS# (0-10)
[2024-10-13 12:52] VITALS: BP 109/65; PULSE 58; O2SAT 97
[2024-10-13 13:28] VITALS: BP 125/82; PULSE 65; O2SAT 97
== END 2024-10-13 13:28 | disposition home or self-care (01) ==
PROVIDERS: Emergency Provider Emergency Medicine; PCP Family Medicine
DX: R07.89 Other chest pain (principal); J92.9 Pleural plaque without asbestos; Z79.02 Long term (current) use of antithrombotics/antiplatelets; Z79.82 Long term (current) use of aspirin; J44.9 Chronic obstructive pulmonary disease, unspecified; I10 Essential (primary) hypertension; Z85.850 Personal history of malignant neoplasm of thyroid
CPT/HCPCS: 36415; 71045; 71275; 80053; 83880; 84484; 85025; 85378; 93005; 96361; 96374; 96375; 99285; J2270; J2405; J7030; J9999

== ENCOUNTER 2024-10-18 19:56 | Emergency (ER) | payer MEDICAID, SELFPAY ==
[2024-10-18 19:58] VITALS: BP 102/69; PULSE 73; RESP 18; TEMP 36.6; O2SAT 94
== END 2024-10-18 20:46 | disposition left against medical advice (07) ==
LOC: ER 20:07
PROVIDERS: Emergency Provider Family Medicine; PCP Family Medicine
DX: Z53.21 Procedure and treatment not carried out due to patient leaving prior to being seen by health care provider (principal)

== ENCOUNTER → 2024-11-11 14:57 | Outpatient (BNVA) | payer MEDICAID, SELFPAY | PROVIDERS: PCP Family Medicine; Visit Provider Family Medicine | DX: R30.0 Dysuria (principal) | CPT/HCPCS: 81000 ==

== ENCOUNTER 2024-11-15 13:30 | Oncology outpatient (recurring) (ONCR) | payer MEDICAID, SELFPAY ==
--- NOTE | 2024-11-14 15:15 | MR_ITS ---
WS: [id number] MRI HEAD WITH CONTRAST TECHNIQUE: Sagittal T1, T2 axial, T2 axial FLAIR, axial susceptibility weighted imaging, axial diffusion weighted images, and coronal T2 images were obtained. Pre and post-T1 axial and post T1 coronal images. ADC and FSPGR images. CLINICAL INFORMATION: non small cell lung cancer COMPARISON: None. FINDINGS: No evidence of restricted diffusion to suggest acute ischemia. Mild small vessel changes. Moderate parenchymal volume loss. Normal posterior fossa. Tiny chronic lacunar infarcts LEFT cerebellum. Normal vascular flow voids at the skull base. No extra-axial fluid collections. Paranasal sinuses and mastoid air cells are well aerated. Mild disc bulging C3-C4. No hemosiderin on the susceptibility weighted images. Normal optic chiasm and pituitary infundibulum. No evidence of enhancing intracranial metastatic disease. Normal dural venous sinuses. MR/MR head wo/w con [id number] IMPRESSION: 1. No evidence of restricted diffusion to suggest acute ischemia. 2. Mild small vessel changes. 3. Moderate parenchymal volume loss. 4. No evidence of enhancing intracranial metastatic disease. 5. No other acute findings.
[2024-11-14] MEDS: gadobenate dimeglumine 20 mL vial 16 ML IV (16:06)
--- NOTE | 2024-11-15 13:30 | PETR_ITS ---
PROCEDURE INFORMATION: Exam: PET/CT Skull Base to Mid-thigh Exam date and time: 11/15/2024 1:59 PM Age: 63 years old Clinical indication: Condition or disease; Primary cancer: Non small cell lung cancer; Prior surgery; Surgery date: 6+ months; Surgery type: Bilat tkr, stent in left arm LABS AND CLINICAL REPORTS: Glucose: 93 mg/dl Treatment strategy for malignancy (PET staging): Initial Staging (PI) TECHNIQUE: Imaging protocol: Following at least four-hour fasting and following the injection of radiopharmaceutical, low dose CT images were obtained. Then, PET images were obtained. Attenuation corrected images were constructed using the CT scan. Fused images of PET and CT were reviewed. The standardized uptake values (SUV) reported below are maximum values within a region of interest, expressed in gm/ml. Exam includes orbital meatal line to mid-thigh. SUV normalization method: BodyWeight Radiopharmaceutical: 11.52 mCi F-18 FDG (Fluorodeoxyglucose), IV. Time of imaging post radiopharmaceutical administration: 47 minutes Injection site: left ac COMPARISON: CT angio chest PE protcl [id number] 10/13/2024 11:24 AM FINDINGS: Brain: Visualized brain has normal physiologic uptake. Pharynx: No abnormal uptake. Larynx: Symmetric uptake is likely physiologic activation. Lungs, pleura and trachea: Redemonstrated diffuse circumferential nodular pleural thickening along the right hemithorax, to include the fissures, with associated FDG avidity showing SUV max 12.2 on axial image 206. Small photopenic fluid density right pleural effusion. Calcified granulomata. Mild medial left apical pleuroparenchymal thickening without FDG avidity likely represents chronic atelectasis or scar/fibrosis. Heart: Normal physiologic uptake. Mediastinal space: No abnormal uptake. Liver: No abnormal uptake. Gallbladder and biliary ducts: No abnormal uptake. Prior cholecystectomy. Pancreas: No abnormal uptake. Spleen: No abnormal uptake. Adrenal glands: No abnormal uptake. Kidneys and ureters: Normal physiologic uptake. Stomach and bowel: No abnormal uptake. Colonic diverticulosis without findings of diverticulitis. Reproductive: The uterus is surgically absent. Vasculature: No abnormal uptake. Mild systemic atherosclerotic calcification without aortic aneurysm. Proximal left subclavian artery stent. Lymph nodes: Calcified mediastinal and right hilar nodes with associated FDG uptake of lesser degree than right pleural thickening. Skeleton: Degenerative change along the axial skeletal system, acromioclavicular joints and mildly at the hips. Mild right shoulder periarticular FDG uptake is likely inflammatory. Soft tissues: No abnormal uptake in the visualized head, neck, chest, abdomen, pelvis, and extremities. Small fat containing umbilical hernia. METRICS: Mediastinal blood pool: SUV mean 2.1 Liver uptake: SUV mean 2.8 PET/PET skull to thigh INIT [id number] IMPRESSION: 1. FDG avid diffuse circumferential nodular right pleural thickening and small right pleural effusion likely represent malignant pleural disease. 2. Calcified mediastinal and right hilar nodes with associated FDG uptake of lesser degree than right pleural thickening. FDG uptake may be related to old granulomatous disease and/or metastatic disease. 3. Additional chronic and incidental findings as above.
== END 2024-11-27 23:59 | disposition home or self-care (01) ==
LOC: ONCMED 11-18 11:32
PROVIDERS: PCP Family Medicine; Visit Provider Internal Medicine Medical Oncology
DX: Z53.9 Procedure and treatment not carried out, unspecified reason (principal); C34.90 Malignant neoplasm of unspecified part of unspecified bronchus or lung
CPT/HCPCS: 36415; 70553; 78815; A9552; A9577

== ENCOUNTER → 2024-12-21 18:32 | Outpatient (BNVA) | payer MEDICAID, SELFPAY | PROVIDERS: PCP Family Medicine; Visit Provider Emergency Medicine | DX: B34.9 Viral infection, unspecified (principal) | CPT/HCPCS: 87400 ==

== ENCOUNTER 2025-01-03 03:47 | Emergency (ER) | payer MEDICAID, SELFPAY ==
[2025-01-03] VITALS (12 sets, daily range): BP systolic 85–129; BP diastolic 59–83; PULSE 60–64; RESP 16–17; TEMP 36.6; O2SAT 93–97; BMI 20.1
[2025-01-03 04:44] LABS: Basophils % 0.4 %; Eosinophils # 0.1 10^3/uL (0.0-0.8); Eosinophils % 1.7 %; Hematocrit 43.1 % (36-47); Lymphocytes # 1.8 10^3/uL (0.8-4.8); Lymphocytes % 21.9 %; Mean Corpuscular HGB Conc 32.5 g/dL (30-55); Mean Corpuscular Hemoglobin 28.5 pg (27-33); Mean Corpuscular Volume 87.8 fl (85-98); Mean Platelet Volume 9.3 fL (7.4-10.4); Monocytes # 0.4 10^3/uL (0.2-0.9); Monocytes % 4.6 %; Neutrophils # 5.73 10^3/uL (1.8-7.7); Neutrophils % 71.2 %; Nucleated Red Blood Cells % 0 %; Platelet Count 412 10^3/cmm (157-399); Red Blood Count 4.91 10^6/uL (3.85-5.65); Red Cell Distribution Width 13.2 % (12.1-15.1); White Blood Count 8.05 10^3/uL (3.29-11.43)
[2025-01-03 05:02] LABS: Alanine Aminotransferase 10 U/L (0-33); Albumin Level 3.4 g/dL (3.5-5.2); Alkaline Phosphatase 238 U/L (35-105); Anion Gap 14.7 (5-19); Aspartate Amino Transferase 20 U/L (0-32); Blood Urea Nitrogen 9 mg/dL (8-23); C Reactive Protein 28.8 mg/L (0.0-4.9); Calcium 9.7 mg/dL (8.5-10.5); Carbon Dioxide 25 mmol/L (22-29); Chloride 100 mmol/L (98-107); Creatinine Clr Calc Pharmacy 56.0966; Glomerular Filtration Rate 72.2 mL/min (90-130); Glucose 95 mg/dL (65-115); Lipase 17 U/L (13-60); Osmolality Calculated 280 mOsm/kg (285-295); Potassium 3.7 mmol/L (3.5-5.1); Sodium 136 mmol/L (136-145); Total Bilirubin 0.3 mg/dL (0.15-1.2); Total Protein 7.4 g/dL (6.6-8.7)
[2025-01-03 05:04] LABS: Lactic Sepsis W/Reflex 1.2 mmol/L (0.5-2.2)
--- NOTE | 2025-01-03 06:23 | CT_ITS ---
WS: [id number] CT ABDOMEN PELVIS TECHNIQUE: Contrast-enhanced CT of the abdomen and pelvis with coronal and sagittal reformatted images. CLINICAL INFORMATION: abdominal pain COMPARISON: None. DLP: 577.[address] scans at [facility] use at least one of these dose optimization techniques: automated exposure control; mA and/or kV adjustment per patient size (includes targeted exams where dose is matched to clinical indication); or iterative reconstruction. FINDINGS: Partially visualized mesothelioma right lower lobe. Hepatomegaly. Cholecystectomy. Mild fatty liver. Normal portal vein and splenic vein. Fatty atrophy of the pancreas. Normal caliber abdominal aorta. Adrenal glands are normal. Normal renal parenchymal enhancement. Small LEFT renal cyst. Tiny fat-containing umbilical hernia. Celiac and SMA are patent. Tiny esophageal hiatal hernia. Sigmoid diverticulosis. No evidence of acute diverticulitis. Moderate RIGHT colon and transverse colon constipation. Unilateral RIGHT L5-S1 pars defect. CT/CT abdomen pelvis w con* [id number] IMPRESSION: 1. Partially visualized mesothelioma RIGHT lung. 2. Prior cholecystectomy. 3. Hepatomegaly. 4. Sigmoid diverticulosis. No evidence of acute diverticulitis. 5. Moderate constipation in the RIGHT colon and transverse colon.
--- NOTE | 2025-01-03 06:51 | ED_ITS ---
HPI - Abdominal Pain 2 General: Chief Complaint: Abdominal Pain Stated Complaint: abd pain bloated lung cancer pt Time Seen by Provider: 01/03/25 05:53 History of Present Illness: 64-year-old female presents emergency de partment chief complaint of abdominal pain with constipation. Patient endosrses a history of chronic opiate use due to which the patient has been on for quite some time patient endorses issues with constipation previously reports prior history of cholecystectomy as well as appendectomy and hysterectomy. She endorses that she has tried a rectal enema as well as several doses of MiraLAX in no avail starting yesterday patient denies any fevers or chills. The patient does endorse a recent diagnosis of mesothelioma despite she does not smoke when she is going to the [facility] for that she is getting scheduled for a treatment both surgical possibility as well as possibly medical patient reports no increased shortness of breath or difficulty breathing does endorse an appetite reduction and weight loss consistent in the last several months. Patient does report after the antibiotics she did have a little bit of blood mixed into her stools however she does endorse a known history of rectal hemorrhoids as well patient reports just generalized abdominal discomfort did endorse some bloating and distention previously that has since resolved. She presents to the emergency department with her son present for further assessment and management. Associated Symptoms: Reports constipation and nausea; Denies chills, fever(s) and vomiting Related Data Home Medications ?Medication ?Instructions ?Recorded ?Confirmed acetaminophen 500 mg tablet 1,000 mg PO Q6H PRN Fever Or Pain 10/13/24 12/21/24 (Tylenol Extra Strength) aspirin 81 mg tablet,delayed 81 mg PO DAILY 10/13/24 0 12/21/24 release (Laura Low Dose Aspirin) diphenhydramine HCl 25 mg tablet 25 - 50 mg PO TID PRN allergies 10/13/24 12/21/24 (Benadryl Allergy) Previous Rx's ?Medication ?Instructions ?Recorded diclofenac sodium 75 mg 75 mg PO BID PRN pain #20 ta bs 12/05/23 tablet,delayed release atorvastatin 10 mg tablet 10 mg PO DAILY #90 tabs 11/30 tizanidine 2 mg capsule 2 mg PO Q12H PRN muscle spas ticity 02/08/24 #180 caps clopidogrel 75 mg tablet 75 mg PO DAILY #90 tabs 01/30 levothyroxine 150 mcg tablet 150 mcg PO DAILY #90 tabs 03/25/24 trazodone 50 mg tablet See Rx Instructions .Route 1 .COMPLEX #30 tabs albuterol sulfate 90 mcg/actuation See Rx Instructions .Route 10/17/24 aerosol inhaler (Ventolin HFA) .COMPLEX #18 grams fluticasone 500 mcg-salmeterol 50 1 inh inhalation BID #60 ea 10/17/24 mcg/dose blistr powdr for inhalation (Advair Diskus) propranolol 10 mg tablet See Rx Instructions .Route 0 11/25/24 .COMPLEX #90 tabs ondansetron 8 mg disintegrating 8 mg PO .q6 PRN nausea and 12/21/24 tablet vomiting #30 tabs omeprazole 20 mg capsule,delayed See Rx Instructions . Route 12/24/24 release .COMPLEX #30 caps hydrocodone 10 mg-acetaminophen 1 tab PO Q8H PRN pain 30 days #75 12/27/24 325 mg tablet tabs conjugated estrogens 0.9 mg tablet 0.9 mg PO DAILY #90 tabs 12/30/24 (Premarin) ciprofloxacin HCl 500 mg tablet 500 mg PO BID #14 tabs 01/03/25 (Cipro) methylnaltrexone 150 mg tablet 450 mg (3 x 150 mg) PO DAILY #20 01/03/25 (Relistor) tabs Allergies Allergy/AdvReac Type Severity Reaction Status Date / Time Sulfa (Sulfonamide Allergy Severe ALGY-Difficulty Verified 12/21/24 18:23 Antibiotics) Breathing Review of Systems 2 General: Reports: 10 or more systems reviewed and unremarkable except in HPI and below Const: Reports: fatigue, malaise and other (Weight loss); Denies: fever(s) or chills Eyes: Denies: change in vision or blurry vision Card: Denies: chest pain or palpitations Resp: Denies: dyspnea or productive cough GI: Reports: abdominal pain, nausea and constipation; Denies: vomiting : Denies: flank pain Musc: Denies: extremity pain or extremity swelling Skin/Breast: Denies: rash or pruritus Neuro: Denies: headache(s) Psych: Denies: anxiety or depression Endo: Reports: tired all the time and flushing; Denies: polyuria, polydipsia, cold intolerance or excessive sweating [place]/Lymph: Denies: easy bleeding All/Imm: Denies: urticaria, throat swelling or facial swelling PFSH ED 2 PFSH: Medical History Anxiety disorder Hypoestrogenism Essential tremor Essential hypertension Hypothyroid COPD (chronic obstructive pulmonary disease) Venous stenosis of left upper extremity Thyroid cancer Social History Smoking and tobacco/nicotine status: never used tobacco/nicotine Physical Exam 2 Const: COMMON NORMALS: no acute distress (Patient appears somewhat anxious appearing on exam), patient oriented x3 and healthy appearing HENMT: COMMON NORMALS: normocephalic and atraumatic HEAD & SCALP: n ormocephalic and atraumatic Eye: COMMON NORMALS: Equal, round and reactive pupils present and EOMs intact bilaterally PUPIL: Yes Equal, round and reactive pupils present Neck/C-Spine: COMMON NORMALS: full ROM, supple and no JVD Lymph: LYMPHATIC: no lymphadenopathy noted Chest: COMMONS NORMALS: normal inspection of the chest and normal palpation of entire chest wall Resp: COMMON NORMALS: normal respiratory effort, No retractions and clear to auscultation bilaterally EFFORT & INSPECTION: Yes able to speak in complete sentences and Yes symmetric chest movement AUSCULTATION: clear to auscultation bilaterally Cardio: COMMON NORMALS: no JVD, regular rate and regular rhythm RATE: r egular rate RHYTHM: regular rhythm GI: COMMON NORMALS: Normal to inspection, nondistended, normoactive bowel sounds present, Soft to palpation and non-tender INSPECTION: Yes normal to inspection PALPATION: Yes Soft to palpation OTHER: Somewhat hypoactive bowel sounds noted just generalized abdominal tenderness no guarding or rebound appreciated : COMMON NORMALS: Yes no CVA tenderness BLADDER/KIDNEY EXAM: Yes no CVA tenderness Back/Pelvis: COMMON NORMALS: no CVA tenderness Extremity: COMMON NORMALS: normal to inspection and full ROM Neuro: COMMON NORMALS: patient oriented x3, CN's II-XII intact bilaterally, moves all extremities and no focal motor deficits Psych: COMMON NORMALS: mental status grossly normal, Normal thought process present, cooperative and normal affect THOUGHT PROCESS: Normal thought process present Skin: COMMON NORMALS: no rashes or lesions noted GENERAL SKIN EXAM: no rashes or lesions noted Course 2 Vital Signs: Vital signs: Vital Signs Temperature 98 F 01/03/25 04:08 Pulse Rate 60 01/03/25 07:00 Respiratory Rate 17 01/03/25 07:00 Blood Pressure 104/70 01/03/25 09:30 Pulse Oximetry 96 01/03/25 09:30 Oxygen Delivery Me thod Room Air 01/03/25 07:00 MDM - Abdominal Pain Medical Decision Making Due to patient's symptoms and condition lab work and imaging will be obtained we will continue to follow. Patient will be provided Relistor for her opioid- induced constipation due to her persistent abdominal pain with significant history CT abdomen pelvis with IV and oral contrast will be obtained will continue to follow. In addition IV fluids were will be provided for underlying presumed dehydration contributing to her constipation , Urinalysis also revealed a urinary tract infection will be started the patient on some Rocephin for this remainder of her lab work came back reassuring patient be discharged home advised further follow-up with primary care in 3 to 5 days and was to return the interim if any of her symptoms persist or worsen Lab Data 01/03/25 07:37 01/03/25 07:37 Labs/Radiology: Radiology Impressions Abdomen/Pelvis CT 01/03/25 06:23 IMPRESSION: 1. Partially visualized mesothelioma RIGHT lung. 2. Prior cholecystectomy. 3. Hepatomegaly. 4. Sigmoid diverticulosis. No evidence of acute diverticulitis. 5. Moderate constipation in the RIGHT colon and transverse colon. Laboratory Results WBC 9.04 10^3/uL (3.29-11.43) 01/03/25 07:37 RBC 4.98 10^6/uL (3.85-5.65) 01/03/25 07:37 Hgb 14.10 g/dL (11.27-16.99) 01/03/25 07:37 Hct 44.0 % (36-47) 01/03/25 07:37 MCV 88.4 fl (85-98) 01/03/25 07:37 MCH 28.3 pg (27-33) 01/03/25 07:37 MCHC 32.0 g/dL (30-55) 01/03/25 07:37 RDW 13.3 % (12.1-15.1) 01/03/25 07:37 Plt Count 381 10^3/cmm (157-399) 01/03/25 07:37 MPV 9.5 fL (7.4-10.4) 01/03/25 07:37 Neut % (Auto) 80.1 % 01/03/25 07:37 Lymph % (Auto) 13.8 % 01/03/25 07:37 [place] % (Auto) 4.1 % 01/03/25 07:37 Eos % (Auto) 1.4 % 01/03/25 07:37 Baso % (Auto) 0.2 % 01/03/25 07:37 Neut # (Auto) 7.23 10^3/uL (1.8-7.7) 01/03/25 07:37 Lymph # (Auto) 1.3 10^3/uL (0.8-4.8) 01/03/25 07:37 [place] # (Auto) 0.4 10^3/uL (0.2-0.9) 01/03/25 07:37 Eos # (Auto) 0.1 10^3/uL (0.0-0.8) 01/03/25 07:37 Baso # (Auto) 0.0 10^3/uL (0.0-0.1) 01/03/25 07:37 Nucleated RBC % (auto) 0 % 01/03/25 07:37 Nucleated RBCs # 0.0 /100WBC 01/03/25 07:37 Sodium 135 mmol/L (136-145) L 01/03/25 07:37 Potassium 3.6 mmol/L (3.5-5.1) 01/03/25 07:37 Chloride 98 mmol/L (98-107) 01/03/25 07:37 Carbon Dioxide 25 mmol/L (22-29) 01/03/25 07:37 Anion Gap 15.6 (5-19) 01/03/25 07:37 BUN 10 mg/dL (8-23) 01/03/25 07:37 Creatinine 0.9 mg/dL (0.5-0.9) 01/03/25 07:37 GFR Calculation 63.0 mL/min (90-130) L 01/03/25 07:37 Glucose 83 mg/dL (65-115) 01/03/25 07:37 Calculated Osmolality 278 mOsm/kg (285-295) L 01/03/25 07:37 Lactic Acid 0.9 mmol/L (0.5-2.2) 01/03/25 07:37 Calcium 10.0 mg/dL (8.5-10.5) 01/03/25 07:37 Total Bilirubin 0.3 mg/dL (0.15-1.2) 01/03/25 07:37 AST 19 U/L (0-32) 01/03/25 07:37 ALT 10 U/L (0-33) 01/03/25 07:37 Alkaline Phosphatase 242 U/L (35-105) H 01/03/25 07:37 C-Reactive Protein 32.2 mg/L (0.0-4.9) H 01/03/25 07:37 Total Protein 7.7 g/dL (6.6-8.7) 01/03/25 07:37 Albumin 3.4 g/dL (3.5-5.2) L 01/03/25 07:37 Globulin 4.3 g/dL (1.3-4.6) 01/03/25 07:37 Lipase 17 U/L (13-60) 01/03/25 04:30 Urine Color Yellow (Yellow) 01/03/25 09:25 Urine Appearance Cloudy (CLEAR) A 01/03/25 09:25 Urine pH 5.5 (5-7) 01/03/25 09:25 Ur Specific [place] 1.063 (1.005-1.030) H 01/03/25 09:25 Urine Protein Trace (Negative) A 01/03/25 09:25 Urine Glucose (UA) Negative (Normal) 01/03/25 09:25 Urine Ketones Negative (Negative) 01/03/25 09:25 Urine Blood Trace (Negative) A 01/03/25 09:25 Urine Nitrate Negative (Negative) 01/03/25 09:25 Urine Bilirubin Negative (Negative) 01/03/25 09:25 Urine Urobilinogen 0.2 mg/dL (Negative) 01/03/25 09:25 Ur Leukocyte Esterase 2+ (Negative) A 01/03/25 09:25 Urine RBC 0-2 /hpf (0-2) 01/03/25 09:25 Urine WBC 11-20 /hpf (0-5) H 01/03/25 09:25 Ur Squamous Epith Cells 6-10 /hpf (0-5) 01/03/25 09:25 Amorphous Sediment Not Reportable 01/03/25 09:25 Urine Bacteria 3+ /hpf (NONE) H 01/03/25 09:25 Hyaline Casts 2.05 /lpf 01/03/25 09:25 All radiology interpretation(s) finalized by discharge Discharge Plan Discharge Patient Disposition: Home Clinical Impression: Opioid-induced constipation, UTI (urinary tract infection) Condition: Stable Prescriptions: New ciprofloxacin HCl [Cipro] 500 mg tablet 500 mg PO BID Qty: 14 0RF Relistor 150 mg tablet 450 mg PO DAILY Qty: 20 0RF No Action atorvastatin 10 mg tablet 10 mg PO DAILY Qty: 90 3RF tizanidine 2 mg capsule 2 mg PO Q12H PRN (Reason: muscle spasticity) Qty: 180 3RF diclofenac sodium 75 mg tablet,delayed release (DR/EC) 75 mg PO BID PRN (Reason: pain) Qty: 20 0RF levothyroxine 150 mcg tablet 150 mcg PO DAILY Qty: 90 3RF ondansetron 8 mg tablet,disintegrating 8 mg PO .q6 PRN (Reason: nausea and vomiting) Qty: 30 0RF clopidogrel 75 mg tablet 75 mg PO DAILY Qty: 90 3RF trazodone 50 mg tablet See Rx Instructions .ROUTE .COMPLEX Qty: 30 5RF Dose Instruction: Take 1 tablet by mouth once daily Rx Instructions: Take 1 tablet by mouth once daily fluticasone propion-salmeterol [Advair Diskus] 500-50 mcg/dose blister with device 1 inh inhalation BID Qty: 60 5RF albuterol sulfate [Ventolin HFA] 90 mcg/actuation HFA aerosol inhaler See Rx Instructions .ROUTE .COMPLEX Qty: 18 5RF Dose Instruction: INHALE TWO PUFFS BY MOUTH EVERY 6 HOURS NEEDED FOR SHORTNESS OF BREATH or wheezing Rx Instructions: INHALE TWO PUFFS BY MOUTH EVERY 6 HOURS NEEDED FOR SHORTNESS OF BREATH or wheezing propranolol 10 mg tablet See Rx Instructions .ROUTE .COMPLEX Qty: 90 1RF Dose Instruction: TAKE 1 TABLET BY MOUTH THREE TIMES DAILY Rx Instructions: TAKE 1 TABLET BY MOUTH THREE TIMES DAILY omeprazole 20 mg capsule,delayed release(DR/EC) See Rx Instructions .ROUTE .COMPLEX Qty: 30 3RF Dose Instruction: take 1 capsule BY MOUTH EVERY DAY Rx Instructions: take 1 capsule BY MOUTH EVERY DAY hydrocodone-acetaminophen 10-325 mg tablet 1 tab PO Q8H PRN (Reason: pain) 30 Days Qty: 75 0RF Premarin 0.9 mg tablet 0.9 mg PO DAILY Qty: 90 1RF Rx Instructions: cyclically aspirin [Laura Low Dose Aspirin] 81 mg Tablet,Delayed Release (Dr/Ec) 81 mg PO DAILY acetaminophen [Tylenol Extra Strength] 500 mg Tablet 1,000 mg PO Q6H PRN (Reason: Fever Or Pain) diphenhydramine HCl [Benadryl Allergy] 25 mg Tablet 25 - 50 mg PO TID PRN (Reason: allergies) Discharge Orders: Discharge ED (Routine); Ordered 01/03/25 Ordered By: Noah Gomez Referrals: Agueda Lawson MD [Primary Care Provider, [facility]] - 1-3 days Discharge Diet: Advance as tolerated Discharge Activity: Increase activity as tolerated Patient Instructions: Opioid Safety, Pain Management, Constipation (ED), Urinary Tract Infection - Women Activity Restrictions/Additional Instructions: Drink plenty of fluids take medications as prescribed please further follow-up with primary care in 3 to 5 days in which return the interim if any of your symptoms persist or worse. Print Language: Peruvian Coding Level of Care Code ED Psychiatric Tech for Shaylee Benítez
[2025-01-03] MEDS: sodium chloride 0.9% 500 ML IV (06:56)
[2025-01-03] MEDS: ondansetron 2 mg/ML SDV 2 mL 4 MG IVP (06:56)
[2025-01-03] MEDS: iohexol 350 mg/mL 500 mL Btl (per mL) IV (07:45)
[2025-01-03] MEDS: iohexol 350 mg/mL 500 mL Btl (per mL) PO (07:45)
[2025-01-03 07:48] LABS: Basophils % 0.2 %; Eosinophils # 0.1 10^3/uL (0.0-0.8); Eosinophils % 1.4 %; Lymphocytes # 1.3 10^3/uL (0.8-4.8); Lymphocytes % 13.8 %; Mean Corpuscular Hemoglobin 28.3 pg (27-33); Mean Corpuscular Volume 88.4 fl (85-98); Mean Platelet Volume 9.5 fL (7.4-10.4); Monocytes # 0.4 10^3/uL (0.2-0.9); Monocytes % 4.1 %; Neutrophils # 7.23 10^3/uL (1.8-7.7); Neutrophils % 80.1 %; Nucleated Red Blood Cells % 0 %; Platelet Count 381 10^3/cmm (157-399); Red Blood Count 4.98 10^6/uL (3.85-5.65); Red Cell Distribution Width 13.3 % (12.1-15.1); White Blood Count 9.04 10^3/uL (3.29-11.43)
[2025-01-03 08:05] LABS: Lactic Sepsis W/Reflex 0.9 mmol/L (0.5-2.2)
[2025-01-03 08:06] LABS: Alanine Aminotransferase 10 U/L (0-33); Albumin Level 3.4 g/dL (3.5-5.2); Alkaline Phosphatase 242 U/L (35-105); Anion Gap 15.6 (5-19); Aspartate Amino Transferase 19 U/L (0-32); Blood Urea Nitrogen 10 mg/dL (8-23); C Reactive Protein 32.2 mg/L (0.0-4.9); Carbon Dioxide 25 mmol/L (22-29); Chloride 98 mmol/L (98-107); Creatinine Clr Calc Pharmacy 49.8636; Globulin 4.3 g/dL (1.3-4.6); Glucose 83 mg/dL (65-115); Osmolality Calculated 278 mOsm/kg (285-295); Potassium 3.6 mmol/L (3.5-5.1); Sodium 135 mmol/L (136-145); Total Bilirubin 0.3 mg/dL (0.15-1.2); Total Protein 7.7 g/dL (6.6-8.7)
[2025-01-03 09:34] LABS: Bilirubin Urine Negative (Negative); Blood Urine Trace (Negative); Glucose Urine UA Negative (Normal); Ketones Urine Negative (Negative); Leukocyte Esterase Urine 2+ (Negative); Nitrate Urine Negative (Negative); Protein Urine Trace (Negative); Urine Appearance Cloudy (CLEAR); Urine Color Yellow (Yellow); Urobilinogen Urine 0.2 mg/dL (Negative); pH Urine 5.5 (5-7)
[2025-01-03 09:36] LABS: Bacteria Urine 3+ /hpf; Hyaline Casts Urine 2.05 /lpf; RBC Urine 0-2 /hpf (0-2)
[2025-01-03 10:25] LABS: Add Urine Culture? Yes; Specific Gravity, Urine 1.063 (1.005-1.030); UA Slide Review UA Slide Review Perf
--- NOTE | 2025-01-03 11:13 | PC.NURSE ---
Pt started having bowel movements and I spoke with the doctor and he stated to not give the relistor shot after all. Pt did get a prescription for the relistor so that should take care of her ongoing constipation.
[2025-01-04 16:08] LABS: Bacillus cereus group Not Detected (NOT DETECT); Bacillus subtillis group Not Detected (NOT DETECT); Corynebacterium Not Detected (NOT DETECT); Cutibacterium acnes (P.acnes) Not Detected (NOT DETECT); Enterococcus Not Detected (NOT DETECT); Enterococcus faecalis Not Detected (NOT DETECT); Enterococcus faecium Not Detected (NOT DETECT); Lactobacillus species Not Detected (NOT DETECT); Listeria Not Detected (NOT DETECT); Listeria monocytogenes Not Detected (NOT DETECT); Micrococcus Not Detected (NOT DETECT); Pan Candida Not Detected (NOT DETECT); Pan Gram-Negative Not Detected (NOT DETECT); Staphylococcus epidermidis Not Detected (NOT DETECT); Staphylococcus lugdunensis Not Detected (NOT DETECT); Staphylococcus species Not Detected (NOT DETECT); Streptococcus agalactiae Not Detected (NOT DETECT); Streptococcus anginosus group Not Detected (NOT DETECT); Streptococcus pneumoniae Not Detected (NOT DETECT); Streptococcus pyogenes Not Detected (NOT DETECT); Streptococcus species Not Detected (NOT DETECT)
== END 2025-01-03 11:15 | disposition home or self-care (01) ==
PROVIDERS: Emergency Medicine; Emergency Provider Emergency Medicine; PCP Family Medicine
DX: K59.03 Drug induced constipation (principal); T40.2X5A Adverse effect of other opioids, initial encounter; N39.0 Urinary tract infection, site not specified; Z79.02 Long term (current) use of antithrombotics/antiplatelets; Z79.82 Long term (current) use of aspirin; J44.9 Chronic obstructive pulmonary disease, unspecified; I10 Essential (primary) hypertension; Z85.850 Personal history of malignant neoplasm of thyroid; X58.XXXA Exposure to other specified factors, initial encounter
CPT/HCPCS: 36415; 74177; 80053; 81001; 83605; 83690; 85025; 86140; 87040; 87086; 96374; 99285; J2405; J7040